=== PATIENT | male | born 1980 | race African-American/Black ===

== ENCOUNTER 2017-01-29 15:07 | Emergency (ER) | payer MEDICARE, OTHER ==
[~2017-01-29] VITALS: Ht 177.8 cm; Wt 75.0 kg
[~2017-01-29 15:07] MED LIST: AMLO5 PO; ARIP1TAB5 PO; CHLO.12%30 SSP; CLIN150 PO; CLON.1 PO; DEPA500T3 PO; DICL50 PO; DOXY100T PO; HYDR12.56 PO; LANSO15 PO; LITH300C2 PO; MOBI15TA PO; ZOFR4TAB3 SL
[2017-01-29 15:08] VITALS: BP 173/99; PULSE 100; RESP 20; TEMP 98.5; O2SAT 98
[2017-01-29] MEDS ORDERED: MOBI15TA PO (15:36)
[2017-01-29] MEDS ORDERED: CLIN300C5 PO (15:36)
--- NOTE | 2017-01-29 15:36 | PD ---
HPI Chief Complaint: Oral / Dental Pain or Problem Time Seen by Provider: 15:25 Travel History International Travel<30 days: No Contact w/Intl Traveler<30days: No Traveled to known affect area: No History of Present Illness HPI 36 years old male complains of jaw pain. Patient status post closed reduction interdental fixation of mandibular fracture in October 30, 2015. Patient has been unable to follow-up with any facial surgeon since discharge. Patient states that he has chronic pain and swelling of the jaw since then. Patient denies any new injury. Patient denies any fever chills. Patient denies any problem with swallowing. PFSH Past Medical History Asthma: No Autoimmune Disease: No Anxiety: Yes Depression: Yes Heart Rhythm Problems: No Cancer: No Cardiovascular Problems: Yes High Cholesterol: No Chemotherapy: No Diabetes: No Diminished Hearing: No Endocrine: No Gastrointestinal Disorders: Yes GERD: Yes Genitourinary: No Hypertension: Yes Immune Disorder: No Implanted Vascular Access Dvce: No Musculoskeletal: No Neurologic: No Psychiatric: Yes Reproductive: No Respiratory: Yes Immunizations Current: Yes Radiation Therapy: No Schizophrenia: Yes (schizoaffective) Sickle Cell Disease: No Sleep Apnea: Yes Thyroid Disease: No Past Surgical History Oral Surgery: Yes (jaw is wired shut) Other Surgery: No Social History Alcohol Use: Yes (social) Tobacco Use: Yes (half pack a day) Substance Use: Yes (coke, marijuana) Allergies-Medications (Allergen,Severity, Reaction): Coded Allergies: penicillin G (Unverified Allergy, Severe, Nausea/Vomiting/Anaphylaxis, ) Reported Meds & Prescriptions Reported Meds & Active Scripts Active Mobic (Meloxicam) 15 Mg Tab 15 Mg PO DAILY Doxycycline Hyclate 100 Mg Tab 100 Mg PO BID [id number] Mg 50 Mg Tabec 50 Mg PO TID Cleocin (Clindamycin HCl) 150 Mg Cap 2 Tab PO QID Depakote ER 500 mg (Divalproex Sodium) 500 Mg Ed 1,000 Mg PO HS 30 Days Prevacid 15 Mg15 M1 15 Mg Tab 15 Mg PO BID 30 Days Catapres (Clonidine HCl) 0.1 Mg Tab 0.1 Mg PO TID 30 Days Hydrochlorothiazide (Miscellaneous Medication) 12.5 Mg Cap 12.5 Mg PO DAILY 30 Days Norvasc (Amlodipine Besylate) 5 Mg Tab 10 Mg PO DAILY 30 Days Peridex Oral R0.12 % 0.12 % Cassandra 15 Ml SSP BID Cleocin (Clindamycin HCl) 150 Mg Cap 2 Tab PO QID Zofran ODT (Ondansetron HCl) 4 Mg Tab 4 Mg SL Q6H PRN FOR NAUSEA/VOMITING Reported Abilify 10 mg (Aripiprazole) 10 Mg Tab 5 Mg PO DAILY [id number] Mg 300 Mg Cap 300 Mg PO BID Review of Systems General / Constitutional: No: Fever Eyes: No: Visual changes HENT: No: Headaches Cardiovascular: No: Chest Pain or Discomfort Respiratory: No: Shortness of Breath Gastrointestinal: No: Abdominal Pain Genitourinary: No: Dysuria Musculoskeletal: No: Pain Skin: No Rash Neurologic: No: Weakness Psychiatric: No: Depression Endocrine: No: Polydipsia Hematologic/Lymphatic: No: Easy Bruising Physical Exam Narrative GENERAL: Well-nourished, well-developed patient. SKIN: Focused skin assessment warm/dry. HEAD: Normocephalic. EYES: No scleral icterus. No injection or drainage. NECK: Supple, trachea midline. No JVD or lymphadenopathy. CARDIOVASCULAR: Regular rate and rhythm without murmurs, gallops, or rubs. RESPIRATORY: Breath sounds equal bilaterally. No accessory muscle use. GASTROINTESTINAL: Abdomen soft, non-tender, nondistended. MUSCULOSKELETAL: No cyanosis, or edema. BACK: Nontender without obvious deformity. No CVA tenderness. Examination of the jaw reveals hardware in place. No obvious soft tissue infection or abscess. Mild diffuse tenderness over the jaw. Data Data Last Documented VS Vital Signs Date Time Temp Pulse Resp B/P (MAP) Pulse Ox O2 Delivery O2 Flow Rate FiO2 01/29/17 15:08 98.5 100 20 173/99 (123) 98 Room Air MDM Medical Decision Making Medical Screen Exam Complete: Yes Emergency Medical Condition: Yes Differential Diagnosis Differential diagnosis including recurrent pain swelling from fractured jaw surgery. Narrative Course 36 years old male with chronic pain swelling of the jaw. Status post surgery for fracture mandible a year ago. Examination of the jaw today reveals no acute process. Diagnosis Primary Impression: Mandible fracture Qualified Codes: S02.609S - Fracture of mandible, unspecified, sequela Additional Instructions: Clindamycin and Mobic as directed. Follow-up with maxillofacial surgeon. Return if worse. Med/Other Pt SpecificInfo: Prescription(s) given Scripts Meloxicam (Mobic) 15 Mg Tab 15 MG PO DAILY for Pain, #30 TAB 0 Refills Prov: Jose Perales MD 01/29/17 Clindamycin (Clindamycin) 300 Mg Cap 300 MG PO TID for Infection, #30 CAP 0 Refills Prov: Jose Perales MD 01/29/17 Disposition: 01 DISCHARGE HOME Condition: Stable Jose Perales MD Jan 29, 2017 15:36
[2017-01-29] MEDS ORDERED: HYDR25TA5 PO (16:30)
[2017-01-29] MEDS ORDERED: DEPA500T3 PO (16:30)
[2017-01-29] MEDS ORDERED: PROT40TA PO (16:30)
[2017-01-29] MEDS ORDERED: RISP1 PO (16:30)
== END 2017-01-29 17:37 | disposition home or self-care (01) ==
LOC: NEPD 15:07
DX: S02.609S Fracture of mandible, unspecified, sequela (principal); X58.XXXS Exposure to other specified factors, sequela; F41.9 Anxiety disorder, unspecified; F32.9 Major depressive disorder, single episode, unspecified; F20.9 Schizophrenia, unspecified; I10 Essential (primary) hypertension; K21.9 Gastro-esophageal reflux disease without esophagitis
CPT/HCPCS: 99284

== ENCOUNTER 2017-04-25 01:26 | Inpatient (IN) | payer MEDICARE, OTHER ==
[~2017-04-25] VITALS: Ht 180.3 cm; Wt 68.5 kg
[~2017-04-25 01:26] MED LIST changes: -AMLO5 PO; -ARIP1TAB5 PO; -CHLO.12%30 SSP; -CLIN150 PO; +CLIN300C5 PO; -CLON.1 PO; -DICL50 PO; -DOXY100T PO; -HYDR12.56 PO; +HYDR25TA5 PO; -LANSO15 PO; -LITH300C2 PO; +PROT40TA PO; +RISP1 PO; -ZOFR4TAB3 SL
[2017-04-25 01:30] VITALS: BP 170/93; PULSE 86; RESP 16; TEMP 98.1; O2SAT 100
--- NOTE | 2017-04-25 01:51 | PD ---
HPI Chief Complaint: Psychiatric Symptoms Time Seen by Provider: 01:29 Travel History International Travel<30 days: No Contact w/Intl Traveler<30days: No Traveled to known affect area: No History of Present Illness HPI 36 year old black male presents to emergency department under [place] act by [employer]. The patient had contacted police advising them that he was going to kill himself. He states that he was going to hang himself from a close line. He had gotten into an argument with his roommate's girlfriend. She made accusations that he had rubbed up against her. He states that he's been bullied all his life. He was knocked to take it. He states that he was going to hurt someone if he didn't believe. He has nowhere to go at this time. He states that he realizes that he needs help and came into the ER. He denies any toxic ingestions. He admits to smoking marijuana and snorting cocaine. He states that he is disabled with schizoaffective disorder and hypertension. Patient claims that he is compliant with his medicines. The patient also states that he has been very edgy now for some time due to a retained arch bar wire in his mouth that he's had for over a year after having his jaw wired due to a fracture. He denies any other current medical complaints PFSH Past Medical History Asthma: No Autoimmune Disease: No Anxiety: Yes Depression: Yes Heart Rhythm Problems: No Cancer: No Cardiovascular Problems: Yes High Cholesterol: No Chemotherapy: No Diabetes: No Diminished Hearing: No Endocrine: No Gastrointestinal Disorders: Yes GERD: Yes Genitourinary: No Hypertension: Yes Immune Disorder: No Implanted Vascular Access Dvce: No Musculoskeletal: No Neurologic: No Psychiatric: Yes Reproductive: No Respiratory: Yes Immunizations Current: Yes Radiation Therapy: No Schizophrenia: Yes (schizoaffective) Sickle Cell Disease: No Sleep Apnea: Yes Thyroid Disease: No Tetanus Vaccination: < 5 Years Past Surgical History Oral Surgery: Yes (jaw is wired shut) Other Surgery: No Social History Alcohol Use: Yes (social) Tobacco Use: Yes (half pack a day) Substance Use: Yes (coke, marijuana) Allergies-Medications (Allergen,Severity, Reaction): Coded Allergies: penicillin G (Unverified Allergy, Severe, Nausea/Vomiting/Anaphylaxis, ) Reported Meds & Prescriptions Reported Meds & Active Scripts Active Mobic (Meloxicam) 15 Mg Tab 15 Mg PO DAILY Clindamycin (Clindamycin HCl) 300 Mg Cap 300 Mg PO TID Reported Depakote ER (Divalproex Sodium) 500 Mg Ed 1,000 Mg PO HS Risperdal (Risperidone) 1 Mg Tab 1 Mg PO BID Protonix (Pantoprazole Sodium) 40 Mg Tab 40 Mg PO DAILY Hydrochlorothiazide 25 Mg Tab 25 Mg PO DAILY Review of Systems General / Constitutional: No: Fever Eyes: No: Visual changes HENT: Positive: Gingival Bleeding, Dental Difficulties, No: Headaches Cardiovascular: No: Chest Pain or Discomfort Respiratory: No: Shortness of Breath Gastrointestinal: No: Abdominal Pain Genitourinary: No: Dysuria Musculoskeletal: No: Pain Skin: No Rash Neurologic: No: Weakness Psychiatric: Positive: Depression, Suicidal Ideations, Mood Disorder, Substance Abuse, No: Anxiety, Disorder of Thought, Homicidal Ideation Endocrine: No: Polydipsia Hematologic/Lymphatic: No: Easy Bruising Physical Exam Narrative GENERAL: Well-nourished, well-developed patient. SKIN: Warm and dry. HEAD: Normocephalic and atraumatic. EYES: No scleral icterus. No injection or drainage. ENT: No nasal drainage noted. Mucous membranes pink. Airway patent. Patient has his lower warm from his arch bar in place. There is gingival erythema and edema. NECK: Supple, trachea midline. Moves head freely without obvious discomfort. CARDIOVASCULAR: Regular rate and rhythm without murmurs, gallops, or rubs. RESPIRATORY: Breath sounds equal bilaterally. No accessory muscle use. GASTROINTESTINAL: Abdomen soft, non-tender, nondistended. EXTREMITIES: No cyanosis or edema. BACK: Nontender without obvious deformity. No CVA tenderness. NEURO: Patient is alert and oriented. no sensorimotor deficits. Nonfocal. Normal speech. PSYCH: No delusions. No auditory or visual hallucinations. Data Data Orders Orders Complete Blood Count With Diff (04/25/17 01:39) Comprehensive Metabolic Panel (04/25/17 01:39) Psych Screen (04/25/17 01:39) Drug Screen, Random Urine (04/25/17 01:39) Alcohol (Ethanol) (04/25/17 01:39) Salicylates (Aspirin) (04/25/17 01:39) Tylenol (Acetaminophen) (04/25/17 01:39) Valproic Acid (Depakene) (04/25/17 01:50) Labs Laboratory Tests Test 04/25/17 01:50 White Blood Count 9.2 TH/MM3 Red Blood Count 4.88 MIL/MM3 Hemoglobin 13.9 GM/DL Hematocrit 41.1 % Mean Corpuscular Volume 84.2 FL Mean Corpuscular Hemoglobin 28.6 PG Mean Corpuscular Hemoglobin Concent 33.9 % Red Cell Distribution Width 13.7 % Platelet Count 234 TH/MM3 Mean Platelet Volume 7.7 FL Neutrophils (%) (Auto) 68.6 % Lymphocytes (%) (Auto) 21.3 % Monocytes (%) (Auto) 7.1 % Eosinophils (%) (Auto) 2.5 % Basophils (%) (Auto) 0.5 % Neutrophils # (Auto) 6.3 TH/MM3 Lymphocytes # (Auto) 2.0 TH/MM3 Monocytes # (Auto) 0.7 TH/MM3 Eosinophils # (Auto) 0.2 TH/MM3 Basophils # (Auto) 0.0 TH/MM3 CBC Comment DIFF FINAL Differential Comment Blood Urea Nitrogen 8 MG/DL Creatinine 1.26 MG/DL Random Glucose 68 MG/DL Total Protein 8.4 GM/DL Albumin 3.6 GM/DL Calcium Level 8.8 MG/DL Alkaline Phosphatase 67 U/L Aspartate Amino Transf (AST/SGOT) 16 U/L Alanine Aminotransferase (ALT/SGPT) 24 U/L Total Bilirubin 0.2 MG/DL Sodium Level 141 MEQ/L Potassium Level 3.8 MEQ/L Chloride Level 103 MEQ/L Carbon Dioxide Level 32.1 MEQ/L Anion Gap 6 MEQ/L Estimat Glomerular Filtration Rate 78 ML/MIN Salicylates Level LESS THAN 1.7 MG/DL Urine Opiates Screen NEG Acetaminophen Level LESS THAN 2.0 MCG/ML Urine Barbiturates Screen NEG Valproic Acid (Depakene) Level LESS THAN 3 MCG/ML Urine Amphetamines Screen NEG Urine Benzodiazepines Screen NEG Urine Cocaine Screen POS Urine Cannabinoids Screen POS Ethyl Alcohol Level LESS THAN 3 MG/DL MDM Medical Decision Making Medical Screen Exam Complete: Yes Emergency Medical Condition: Yes Medical Record Reviewed: Yes Interpretation(s) Laboratory Tests Test 04/25/17 01:50 White Blood Count 9.2 TH/MM3 Red Blood Count 4.88 MIL/MM3 Hemoglobin 13.9 GM/DL Hematocrit 41.1 % Mean Corpuscular Volume 84.2 FL Mean Corpuscular Hemoglobin 28.6 PG Mean Corpuscular Hemoglobin Concent 33.9 % Red Cell Distribution Width 13.7 % Platelet Count 234 TH/MM3 Mean Platelet Volume 7.7 FL Neutrophils (%) (Auto) 68.6 % Lymphocytes (%) (Auto) 21.3 % Monocytes (%) (Auto) 7.1 % Eosinophils (%) (Auto) 2.5 % Basophils (%) (Auto) 0.5 % Neutrophils # (Auto) 6.3 TH/MM3 Lymphocytes # (Auto) 2.0 TH/MM3 Monocytes # (Auto) 0.7 TH/MM3 Eosinophils # (Auto) 0.2 TH/MM3 Basophils # (Auto) 0.0 TH/MM3 CBC Comment DIFF FINAL Differential Comment Blood Urea Nitrogen 8 MG/DL Creatinine 1.26 MG/DL Random Glucose 68 MG/DL Total Protein 8.4 GM/DL Albumin 3.6 GM/DL Calcium Level 8.8 MG/DL Alkaline Phosphatase 67 U/L Aspartate Amino Transf (AST/SGOT) 16 U/L Alanine Aminotransferase (ALT/SGPT) 24 U/L Total Bilirubin 0.2 MG/DL Sodium Level 141 MEQ/L Potassium Level 3.8 MEQ/L Chloride Level 103 MEQ/L Carbon Dioxide Level 32.1 MEQ/L Anion Gap 6 MEQ/L Estimat Glomerular Filtration Rate 78 ML/MIN Salicylates Level LESS THAN 1.7 MG/DL Urine Opiates Screen NEG Acetaminophen Level LESS THAN 2.0 MCG/ML Urine Barbiturates Screen NEG Valproic Acid (Depakene) Level LESS THAN 3 MCG/ML Urine Amphetamines Screen NEG Urine Benzodiazepines Screen NEG Urine Cocaine Screen POS Urine Cannabinoids Screen POS Ethyl Alcohol Level LESS THAN 3 MG/DL Differential Diagnosis MDM: High Differential diagnoses: Schizophrenia, schizoaffective disorder, bipolar, anxiety, depression, adjustment reaction, mood disorder NOS, ODD, depressive disorder NOS, dementia, dementia with agitation, psychosis NOS, substance induced mood disorder, DMDD, Asperger syndrome, infection,electrolyte abnormality, malingering. Narrative Course Mental health screening discussed with the patient. Psychiatric screen ordered. The patient been medically cleared. This is medical clearance for psychiatric admission, polysubstance abuse, schizoaffective disorder Diagnosis Primary Impression: Medical clearance for psychiatric admission Additional Impressions: Polysubstance dependence Schizo-affective schizophrenia, chronic condition Condition: Stable Radames Zambrano Apr 25, 2017 01:51
[2017-04-25 02:09] LABS: AUTOMATED NEUTROPHIL # 6.3 TH/MM3 (1.8-7.7); BASOPHIL % 0.5 % (0.0-2.0); EOSINOPHIL # 0.2 TH/MM3 (0-0.4); EOSINOPHIL % 2.5 % (0.0-4.0); HEMATOCRIT 41.1 % (39.0-51.0); HEMOGLOBIN 13.9 GM/DL (13.0-17.0); LYMPH % 21.3 % (9.0-44.0); MEAN CELL VOLUME 84.2 FL (80.0-100.0); MEAN CORPUSCULAR HEMOGLOBIN 28.6 PG (27.0-34.0); MEAN CORPUSCULAR HGB CONC 33.9 % (32.0-36.0); MEAN PLATELET VOLUME 7.7 FL (7.0-11.0); MONO % 7.1 % (0.0-8.0); MONOCYTE # 0.7 TH/MM3 (0-0.9); NEUT % 68.6 % (16.0-70.0); PLATELET COUNT 234 TH/MM3 (150-450); RED BLOOD COUNT 4.88 MIL/MM3 (4.50-5.90); RED CELL DISTRIBUTION WIDTH 13.7 % (11.6-17.2); WHITE BLOOD COUNT 9.2 TH/MM3 (4.0-11.0)
[2017-04-25 02:18] LABS: ALBUMIN 3.6 GM/DL (3.4-5.0); ALT (GPT) 24 U/L (12-78); AST (GOT) 16 U/L (15-37); BICARBONATE 32.1 MEQ/L (21.0-32.0); BLOOD UREA NITROGEN 8 MG/DL (7-18); CALCIUM 8.8 MG/DL (8.5-10.1); CHLORIDE 103 MEQ/L (98-107); CREATININE 1.26 MG/DL (0.60-1.30); GLOMERULAR FILTRATION RATE 78 ML/MIN (>89); GLUCOSE,RANDOM 68 MG/DL (74-106); SODIUM (NA) 141 MEQ/L (136-145)
[2017-04-25 02:20] LABS: ALKALINE PHOSPHATASE 67 U/L (45-117); TOTAL BILIRUBIN ADULT 0.2 MG/DL (0.2-1.0); TOTAL PROTEIN 8.4 GM/DL (6.4-8.2)
[2017-04-25 02:21] LABS: ACETAMINOPHEN LESS THAN 2.0 MCG/ML (10.0-30.0)
[2017-04-25 03:01] VITALS: BP 150/82; PULSE 80; RESP 16; O2SAT 100
[2017-04-25 03:29] VITALS: BP 162/101; PULSE 72; RESP 16; TEMP 98.4; O2SAT 97
[2017-04-25 06:47] VITALS: BP 152/94; PULSE 79; RESP 18; TEMP 99.2; O2SAT 98
[2017-04-25] MEDS ORDERED: LORazepam 0.5 MG TAB PO PRN (11:00)
[2017-04-25] MEDS ORDERED: LORazepam 1 MG TAB PO PRN (11:00)
[2017-04-25] MEDS ORDERED: MAGNESIUM HYDROXIDE SUSP 30 ML CUP PO PRN (11:00)
[2017-04-25] MEDS ORDERED: ALUMINUM/MAGNESIUM/SIMETH 30 ML CUP PO PRN (11:00)
[2017-04-25] MEDS ORDERED: LORazepam 2 MG/ML VIAL IM PRN ×2 (11:00)
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
[2017-04-25 12:18] VITALS: BP 143/103; PULSE 70; RESP 18; TEMP 98.6; O2SAT 97
[2017-04-25] MEDS: ACETAMINOPHEN 325 MG TAB PO PRN (13:04)
[2017-04-25] MEDS: risperiDONE 1 MG TAB PO SCH (20:13)
[2017-04-25] MEDS: DIVALPROEX SODIUM E.R. 500 MG TAB PO SCH (20:13)
[2017-04-25] MEDS: REMOVE OLD NICODERM (NICOTINE) PATCH T-DERMAL SCH (20:13)
[2017-04-26 05:51] VITALS: BP 146/99; PULSE 65; RESP 18; TEMP 97.7; O2SAT 98
[2017-04-26] MEDS: HYDROCHLOROTHIAZIDE 25 MG TAB PO SCH ×2 (08:41→11:34)
[2017-04-26] MEDS: MELOXICAM 15 MG TAB PO SCH (08:41)
[2017-04-26] MEDS: NICOTINE 21 MG/24 HR PATCH T-DERMAL SCH ×2 (08:41→09:00)
[2017-04-26] MEDS: PANTOPRAZOLE SOD 40 MG DELAYED RELEASE TAB PO SCH (08:41)
[2017-04-26] MEDS: risperiDONE 1 MG TAB PO SCH ×2 (08:41→20:41)
[2017-04-26] MEDS ORDERED: INFLUENZA VIRUS VACCINE (QUADRIVALENT) 0.5 ML SYR IM ONE (10:00)
[2017-04-26] MEDS ORDERED: PNEUMOCOCCAL POLYVALENT INJ 25 MCG/0.5 ML SYR IM ONE (10:00)
[2017-04-26 10:47] LABS: BICARBONATE 31.9 MEQ/L (21.0-32.0); BLOOD UREA NITROGEN 8 MG/DL (7-18); CALCIUM 9.4 MG/DL (8.5-10.1); CHLORIDE 100 MEQ/L (98-107); CREATININE 1.03 MG/DL (0.60-1.30); GLOMERULAR FILTRATION RATE 99 ML/MIN (>89); GLUCOSE,RANDOM 58 MG/DL (74-106); SODIUM (NA) 140 MEQ/L (136-145)
[2017-04-26 10:48] LABS: CHOLESTEROL 151 MG/DL (120-200)
[2017-04-26 10:50] LABS: CHOLESTEROL/ HDL RATIO 2.61 RATIO; HDL CHOLESTEROL 57.8 MG/DL (40.0-60.0); LDL CHOLESTEROL 79 MG/DL (0-99); TRIGLYCERIDES 73 MG/DL (42-150)
--- NOTE | 2017-04-26 15:47 | PD.CONS ---
[facility] Request[facility] By Dr. Barnes Reason for Consult Chronic jaw pain and medical plate Primary Care Physician No Primary Care Physician Diagnoses: History of Present Illness 36 years old with schizoaffective disorder, polysubstance abuse with cocaine and marijuana and history of chronic intermittent jaw pain secondary to multiple dental caries/poor oral hygiene and status post closed reduction interdental fixation of mandibular fracture in October 30, 2015. [facility] consulted due to jaw pain from his metal plate. When I interviewed the patient he denies any jaw pain he stated that his jaw pain is better. He denies any fevers or chills. Patient stated that he has a hard time getting follow-up as outpatient with his metal plate. He said no one will take his insurance and that the physician that did his or surgery is not in the oral. Patient stated that he did not complain about any pain to the psychiatrist. Deny any fevers or chills. Patient nurse at the bedside during the interview. All other review system review negative. Past Family Social History Allergies: Coded Allergies: penicillin G (Unverified Allergy, Severe, Nausea/Vomiting/Anaphylaxis, ) Past Medical History Schizoaffective disorder Polysubstance abuse with cocaine and marijuana GERD Hypertension Past Surgical History status post closed reduction interdental fixation of mandibular fracture in October 30, 2015 Reported Medications Reported Meds & Active Scripts Active Mobic (Meloxicam) 15 Mg Tab 15 Mg PO DAILY Reported Depakote ER (Divalproex Sodium) 500 Mg Ed 1,000 Mg PO HS Risperdal (Risperidone) 1 Mg Tab 1 Mg PO BID Protonix (Pantoprazole Sodium) 40 Mg Tab 40 Mg PO DAILY Hydrochlorothiazide 25 Mg Tab 25 Mg PO DAILY Active Ordered Medications Current Medications Divalproex Sodium (Depakote Er) 1,000 mg HS PO Last administered on 04/25/17at 20:13; Start 04/25/17 at 21:00 Hydrochlorothiazide (Hydrodiuril) 25 mg DAILY PO Last administered on at 11:34; Start 04/26/17 at 09:00 Meloxicam (Mobic) 15 mg DAILY PO Last administered on 04/26/17at 08:41; Start at 09:00 Pantoprazole Sodium (Protonix) 40 mg DAILY PO Last administered on 04/26/17at 08 :41; Start 04/26/17 at 09:00 Risperidone (risperDAL) 1 mg BID PO Last administered on 04/26/17at 08:41; Start 04/25/17 at 21:00 Lorazepam (Ativan) 1 mg Q6H PRN PO MODERATE TO SEVERE ANXIETY; Start 04/25/17 at 11:00 Lorazepam (Ativan Inj) 1 mg Q6H PRN IM MODERATE TO SEVERE ANXIETY; Start at 11:00 Lorazepam (Ativan) 0.5 mg Q12H PRN PO MODERATE TO SEVERE ANXIETY; Start at 11:00; Stop 04/25/17 at 11:06; Status DC Lorazepam (Ativan Inj) 0.5 mg Q12H PRN IM MODERATE TO SEVERE ANXIETY; Start at 11:00; Stop 04/25/17 at 11:06; Status DC Acetaminophen (Tylenol) 650 mg Q4H PRN PO Pain 1-5 or Temp >101F Last administered on 04/25/17at 13:04; Start 04/25/17 at 11:00 Magnesium Hydroxide (Milk Of Magnesia Liq) 30 ml DAILY PRN PO CONSTIPATION; Start 04/25/17 at 11:00 Al Hydrox/Mg Hydrox/Simethicone (Mag-Al Plus Susp Liq) 30 ml Q6H PRN PO DYSPEPSIA; Start 04/25/17 at 11:00 Nicotine (Habitrol 21 Mg Patch.24 Hr) 1 patch DAILY T-DERMAL ; Start 04/26/17 at 09:00 Miscellaneous Information 1 HS T-DERMAL ; Start 04/25/17 at 21:00 Pneumococcal Polyvalent Vaccine (Pneumovax-23 Inj) 25 mcg ONCE ONCE IM Last administered on 04/26/17at 10:00; Start 04/26/17 at 10:00; Stop 04/26/17 at 10:01 ; Status DC Influenza Virus Vaccine (Flu (Quadrivalent) Vaccine Inj) 0.5 ml ONCE ONCE IM Last administered on 04/26/17at 10:00; Start 04/26/17 at 10:00; Stop 04/26/17 at 10:01; Status DC Family History reviewed past family history noncontributory. Social History Positive cocaine and marijuana use Physical Exam Vital Signs Vital Signs Date Time Temp Pulse Resp B/P (MAP) Pulse Ox O2 Delivery O2 Flow Rate FiO2 04/26/17 05:51 97.7 65 18 146/99 (115) 98 Physical Exam GENERAL: This is a well-nourished, well-developed patient, in no apparent distress. SKIN: No rashes, ecchymoses or lesions. Cool and dry. HEAD: Atraumatic. Normocephalic. No temporal or scalp tenderness. EYES: Pupils equal round and reactive. Extraocular motions intact. No scleral icterus. No injection or drainage. ENT: No swelling noted in the jaw. Patient does have multiple dental caries very poor dental hygiene. He also has a loose to where there is tenderness to palpation at the site. NECK: Trachea midline. No JVD or lymphadenopathy. Supple, nontender, no meningeal signs. CARDIOVASCULAR: Regular rate and rhythm without murmurs, gallops, or rubs. RESPIRATORY: Clear to auscultation. Breath sounds equal bilaterally. No wheezes , rales, or rhonchi. GASTROINTESTINAL: Abdomen soft, non-tender, nondistended. No hepato-splenomegaly , or palpable masses. No guarding. MUSCULOSKELETAL: Extremities without clubbing, cyanosis, or edema. No joint tenderness, effusion, or edema noted. No calf tenderness. Negative Homans sign bilaterally. NEUROLOGICAL: Awake and alert. Cranial nerves II through XII intact. Motor and sensory grossly within normal limits. Five out of 5 muscle strength in all muscle groups. Normal speech. Laboratory Laboratory Tests Test 04/26/17 09:43 Blood Urea Nitrogen 8 Creatinine 1.03 Random Glucose 58 Calcium Level 9.4 Sodium Level 140 Potassium Level 4.0 Chloride Level 100 Carbon Dioxide Level 31.9 Anion Gap 8 Estimat Glomerular Filtration Rate 99 Triglycerides Level 73 Cholesterol Level 151 LDL Cholesterol 79 HDL Cholesterol 57.8 Cholesterol/HDL Ratio 2.61 Result Diagram: 04/25/17 0150 04/26/17 0943 Assessment and Plan Assessment and Plan This is a 36-year-old polysubstance abuse and schizoaffective disorder who presented with suicidal ideation Suicidal ideation/schizoaffective disorder/Sandra act -Patient admitted to inpatient psychiatry. Management per psychiatrist. Chronic intermittent jaw pain -status post closed reduction interdental fixation of mandibular fracture in October 30, 2015 -Per patient today is actually a good day he said the pain has improved. Pain seems to be more focal at his dental caries/loose tooth. -Follow as outpatient with oral surgeon. Patient will also need to see a dentist. -Patient does not have any fevers or leukocytosis. We will get an x-ray of the jaw. GERD/hypertension -Resume home medication. Discussed Condition With patient Ella Main MD Apr 26, 2017 15:47
[2017-04-26 16:10] LABS: HEMOGLOBIN A1C 5.8 % (4.3-6.0)
[2017-04-26 17:11] VITALS: BP 153/89; PULSE 73; RESP 18; TEMP 98.2; O2SAT 98
--- NOTE | 2017-04-26 17:48 | HHI.PYPN ---
Subjective Remarks Patient seen for follow-up, chart reviewed. Discussion she staff reported the patient's and cooperative with staff with no behavioral disturbances since admission. Patient was found participating in group and oriented, cooperative. Patient states that he is feeling "alright" recalling that the best about the hospital or that his room is picking on him and him feeling that he wanted to hurt them because there were picking on him. He stated that he plans to return back to [place] once he has jaw addressed as he states has been having swelling and pain secondary to the hardware placed after the previous jaw fractures. He states that he is currently feeling "fine" stating that he plans on returning for his belongings at the detention with plan to stay with his girlfriend and then returning back to [place] at some point. Patient states that he he was very angry and had those thoughts of either hurt them and states that he also been having auditory hallucinations as well admission and that the only occur when he's upset. Patient states that "anger triggers it". Patient reports sleeping well denies any side effects from current treatment, denies any difficulty with eating and drinking alcohol probably. Patient denies any auditory or visual hallucinations at this time or delusions. Review of Systems Except as stated in HPI: all other systems reviewed are Neg Mental Status Examination Appearance: Appropriate Consciousness: Alert Orientation: x4 Motor Activity: Normal gait Speech: Unremarkable Language: Adequate Fund of Knowledge: Adequate Attention and Concentration: Adequate Memory: Unremarkable Mood: Angry Affect: Irritable Thought Process & Associations: Goal directed Thought Content: Bizarre thinking, Preoccupations Hallucination Type: Auditory Delusion Type: None Suicidal Ideation: No Suicidal Plan: No Suicidal Intention: No Homicidal Ideation: No Homicidal Plan: No Homicidal Intention: No Insight: Poor Judgment: Poor Results Labs Labs reviewed Test 04/26/17 09:43 Blood Urea Nitrogen 8 MG/DL Creatinine 1.03 MG/DL Random Glucose 58 MG/DL Calcium Level 9.4 MG/DL Sodium Level 140 MEQ/L Potassium Level 4.0 MEQ/L Chloride Level 100 MEQ/L Carbon Dioxide Level 31.9 MEQ/L Anion Gap 8 MEQ/L Estimat Glomerular Filtration Rate 99 ML/MIN Triglycerides Level 73 MG/DL Cholesterol Level 151 MG/DL LDL Cholesterol 79 MG/DL HDL Cholesterol 57.8 MG/DL Cholesterol/HDL Ratio 2.61 RATIO Vitals/IOs Vital Signs Date Time Temp Pulse Resp B/P (MAP) Pulse Ox O2 Delivery O2 Flow Rate FiO2 04/26/17 17:11 98.2 73 18 153/89 (110) 98 04/25/17 06:47 Room Air Assessment & Plan Problem List: (1) Schizoaffective disorder ICD Codes: F25.9 - Schizoaffective disorder, unspecified Assessment & Plan Patient at this time continues to report feeling angry at his room is for having been picked on a little denied any homicidal ideations at this time. Patient continues to endorse auditory hallucinations which occurred when he was upset. Patient restarted on Depakote which Depakote levels will be drawn after appropriate dosage given. We'll continue current treatment for now and continue to monitor mood and behavior. Continue medical physicians referral medical team. Hospital consult pending for patient's complaint of jaw swelling and pain. Discharge planning in progress Justification for Cont. Inpt. At risk for further decompensation if at lower level of care Discharge Planning To be determined Mario Barnes MD Apr 26, 2017 17:48
[2017-04-26] MEDS: DIVALPROEX SODIUM E.R. 500 MG TAB PO SCH (20:41)
[2017-04-26] MEDS: REMOVE OLD NICODERM (NICOTINE) PATCH T-DERMAL SCH (21:00)
--- NOTE | 2017-04-26 22:02 | RADRPT ---
EXAM DATE/TIME: 04/26/2017 21:35 [place] COMPARISON: No previous studies available for comparison. INDICATIONS : Jaw pain after several surgeries. MEDICAL HISTORY : None. SURGICAL HISTORY : Plates in jaw. ENCOUNTER: Initial ACUITY: >1 year PAIN SCORE: 10/10 LOCATION: Right jaw. FINDINGS: Fixation of both the maxilla and mandible. No displaced fractures on the current exam. Visualized par anasal sinuses are clear. CONCLUSION: 1. Status post fixation as above. No acute fracture identified. Radames Keller MD on April 26, 2017 at 21:58 Board Certified Radiologist. This report was verified electronically.
[2017-04-27 05:45] VITALS: BP 129/82; PULSE 70; RESP 18; TEMP 98; O2SAT 98
[2017-04-27] MEDS: PANTOPRAZOLE SOD 40 MG DELAYED RELEASE TAB PO SCH (09:00)
[2017-04-27] MEDS: MELOXICAM 15 MG TAB PO SCH (09:00)
[2017-04-27] MEDS: NICOTINE 21 MG/24 HR PATCH T-DERMAL SCH (09:00)
[2017-04-27] MEDS: risperiDONE 1 MG TAB PO SCH (09:00)
--- NOTE | 2017-04-27 16:05 | HHI.PYPN ---
Subjective Remarks Patient seen for follow-up, chart reviewed. Discussion she staff reported the patient noted to be frustrated with wanting the metal plate in his jaw to be removed, med compliant. Patient was found lying in hospital bed, cooperative. Patient states that his feeling "alright" reports that he had spoken with his roommates over the phone and that they will talk it out when he returns back home. He plans on returning back to this residence and states that he has been able to return after he had spoken to them. When asked about auditory hallucinations patient positive for a second but the denies stated he was prior to him coming to the hospital. He reports that he no longer having these thoughts of wanting to hurt anyone or his roommates and that he feels okay returning back to his home with them there. He continues to want follow-up for plate in his jaw and was advised to follow up outpatient. Patient at this time denies any SI, HI, AVH or delusions. Patient agreed to sign voluntary at this time. Treatment plan was reviewed with patient stating that tomorrow we will obtain a Depakote level and possibly discharge with plan to follow up outpatient. Review of Systems Except as stated in HPI: all other systems reviewed are Neg Mental Status Examination Appearance: Appropriate Consciousness: Alert Orientation: x4 Motor Activity: Normal gait Speech: Unremarkable Language: Adequate Fund of Knowledge: Adequate Attention and Concentration: Adequate Memory: Unremarkable Mood: Appropriate Affect: Appropriate Thought Process & Associations: Goal directed, Linear Thought Content: Appropriate Hallucination Type: Auditory (denies today) Delusion Type: None Suicidal Ideation: No Suicidal Plan: No Suicidal Intention: No Homicidal Ideation: No Homicidal Plan: No Homicidal Intention: No Insight: Fair Judgment: Impulsive Results Vitals/IOs Vital Signs Date Time Temp Pulse Resp B/P (MAP) Pulse Ox O2 Delivery O2 Flow Rate FiO2 04/27/17 05:45 98.0 70 18 129/82 (98) 98 04/25/17 06:47 Room Air Assessment & Plan Problem List: (1) Schizoaffective disorder ICD Codes: F25.9 - Schizoaffective disorder, unspecified Assessment & Plan Patient this time denies any depressive, manic or psychotic symptoms although when asked about auditory hallucinations patient positive before answering no. Patient states that he no longer has thoughts of hurting his roommates or anyone else. Treatment team will continue to attempt to obtain collateral information from his roommates where he lives to assure the patient is able to return without any concern for safety. We'll increase risperidone to 1 mg a.m. and 2 mg at bedtime, and trazodone 50 mg by mouth at bedtime for sleep disturbance. Continue recommendations as per primary medical team. Discharge planning in progress Justification for Cont. Inpt. At risk for further decompensation if at lower level of care Discharge Planning Patient to return back to his residence once medically psychiatrically cleared Mario Barnes MD Apr 27, 2017 16:05
[2017-04-27 18:41] VITALS: BP 122/79; PULSE 76; RESP 19; TEMP 98.3; O2SAT 97
[2017-04-27] MEDS: DIVALPROEX SODIUM E.R. 500 MG TAB PO SCH (20:34)
[2017-04-27] MEDS: REMOVE OLD NICODERM (NICOTINE) PATCH T-DERMAL SCH (20:38)
[2017-04-27] MEDS ORDERED: risperiDONE 1 MG TAB PO SCH (21:00)
[2017-04-27] MEDS ORDERED: traZODone HCL 50 MG TAB PO SCH (21:00)
[2017-04-28 06:13] VITALS: BP 145/85; PULSE 74; RESP 18; TEMP 97.7; O2SAT 98
[2017-04-28] MEDS: NICOTINE 21 MG/24 HR PATCH T-DERMAL SCH (09:00)
[2017-04-28] MEDS ORDERED: risperiDONE 1 MG TAB PO SCH (09:00)
[2017-04-28] MEDS: HYDROCHLOROTHIAZIDE 25 MG TAB PO SCH (10:07)
[2017-04-28] MEDS: PANTOPRAZOLE SOD 40 MG DELAYED RELEASE TAB PO SCH (10:07)
[2017-04-28] MEDS: MELOXICAM 15 MG TAB PO SCH (10:07)
[2017-04-28] MEDS: ACETAMINOPHEN 325 MG TAB PO PRN (10:08)
[2017-04-28] MEDS ORDERED: HYDR25TA5 PO (14:13)
[2017-04-28] MEDS ORDERED: TRAZ50TA12 PO (14:13)
[2017-04-28] MEDS ORDERED: RISP2TAB2 PO (14:13)
[2017-04-28] MEDS ORDERED: PROT40TA PO (14:13)
[2017-04-28] MEDS ORDERED: DEPA500T3 PO (14:13)
[2017-04-28] MEDS ORDERED: RISP1 PO (14:13)
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
== END 2017-04-28 19:08 | disposition home or self-care (01) | DRG 885 ==
LOC: NEPD 01:26 → NEDA 10:57 → H270 12:05
PROVIDERS: ADMIT Student in an Organized Health Care Education/Training Program; ATTEND Student in an Organized Health Care Education/Training Program
DX: F25.9 Schizoaffective disorder, unspecified (principal); R56.9 Unspecified convulsions; F12.90 Cannabis use, unspecified, uncomplicated; F14.90 Cocaine use, unspecified, uncomplicated; I10 Essential (primary) hypertension; K21.9 Gastro-esophageal reflux disease without esophagitis; K02.9 Dental caries, unspecified; R68.84 Jaw pain; T84.84XD Pain due to internal orthopedic prosthetic devices, implants and grafts, subsequent encounter; Z23 Encounter for immunization
CPT/HCPCS: 70110; 80048; 80053; 80061; 80164; 80307; 83036; 85025; 90686; 90732; 99285; Q2038